=== PATIENT | female | born 1980 | race Caucasian/White ===

== ENCOUNTER 2020-09-24 18:32 | Emergency (ER) | payer BC ==
[2020-09-24 18:45] VITALS: BP 144/96; PULSE 110; TEMP 98.1; BMI 46.7
== END 2020-09-24 19:53 | disposition home or self-care (01) ==
LOC: JER 18:32
DX: H92.02 Otalgia, left ear (principal); J02.9 Acute pharyngitis, unspecified
CPT/HCPCS: 99283-25

== ENCOUNTER 2021-11-26 12:12 | Emergency (ER) | payer BC ==
[2021-11-26 12:24] VITALS: TEMP 98.3; BMI 47.1
[2021-11-26] MEDS ORDERED: SODIUM CHLORIDE 1,000 ML IV SCH (12:30)
[2021-11-26] MEDS ORDERED: SODIUM CHLORIDE 0.9% 500 ML INFUS.BAG IV ONE (12:52)
[2021-11-26] MEDS ORDERED: METOCLOPRAMIDE HCL INJECTION 10 MG/2 ML VIAL IVPB ONE (12:52)
[2021-11-26 13:15] LABS: BASO % 0.7 % (0-2.0); EOS % 0.8 % (0-4.5); HEMATOCRIT 43.4 % (32.4-45.2); HEMOGLOBIN 14.8 GM/dL (10.7-15.3); LYMPH % 27.4 % (8-40); MCH 30.1 pg (25.7-33.7); MEAN CELL VOLUME 88.5 fl (80-96); MEAN PLT VOLUME 7.6 fl (7.5-11.1); MONO % 7.2 % (3.8-10.2); NEUT % 63.9 % (42.8-82.8); PLATELET COUNT 302 10^3/uL (134-434); RDW 12.7 % (11.6-15.6); WHITE BLOOD COUNT 6.6 K/mm3 (4.0-10.0)
[2021-11-26] MEDS ORDERED: METOCLOPRAMIDE HCL INJECTION 10 MG/2 ML VIAL ONE (13:18)
[2021-11-26 13:19] LABS: INR 0.86 (0.83-1.09); PROTHROMBIN TIME (PATIENT) 9.9 SEC (9.7-13.0)
[2021-11-26 13:22] LABS: ACTIVATED PTT 31.1 SECONDS (25.2-36.5)
[2021-11-26 13:35] LABS: ALBUMIN 3.6 g/dl (3.4-5.0); BLOOD UREA NITROGEN 15.8 mg/dL (7-18)
[2021-11-26 13:38] LABS: CREATININE 0.9 mg/dL (0.55-1.3)
[2021-11-26 13:39] LABS: BILIRUBIN,TOTAL 0.4 mg/dL (0.2-1)
[2021-11-26 13:46] VITALS: BP 121/70; PULSE 87
[2021-11-26 14:58] LABS: EPI CELLS 9 /uL (0-25.1); HYALINE CASTS 1 /uL (0-3.1); PH,URINE 5.5 (5.0-8.0); URINE APPEARANCE CLOUDY; URINE BACTERIA 845 /uL (0-1359); URINE BILIRUBIN NEGATIVE (NEGATIVE); URINE COLOR YELLOW; URINE GLUCOSE (UA) 1+ (NEGATIVE); URINE KETONE NEGATIVE (NEGATIVE); URINE LEUK ESTERASE 1+ (NEGATIVE); URINE NITRITE NEGATIVE (NEGATIVE); URINE PROTEIN 1+ (NEGATIVE); URINE RBC 4 /uL (0-23.9); URINE UROBILINOGEN 0.2 mg/dL (0.2-1.0); URINE WBC 151 /uL (0-25.8)
== END 2021-11-26 15:33 | disposition home or self-care (01) ==
LOC: JER 12:12
PROC: 3E033GC Introduction of Other Therapeutic Substance into Peripheral Vein, Percutaneous Approach (ICD-10-PCS; principal; 2021-11-26)
DX: R51.9 Headache, unspecified (principal)
CPT/HCPCS: 36415; 70450-TC; 80053; 80061; 81003; 83036; 85025; 85610; 85730; 86850; 86900; 86901; 93005; 93010; 99285-25

== ENCOUNTER 2021-12-18 15:13 | Emergency (ER) | payer BC ==
[2021-12-18 15:41] VITALS: BP 146/90; PULSE 100; TEMP 98; BMI 48.2
[2021-12-18] MEDS ORDERED: SODIUM CHLORIDE 0.9% 500 ML INFUS.BAG IV ONE (16:44)
[2021-12-18 17:12] LABS: BASO % 0.8 % (0-2.0); EOS % 1.4 % (0-4.5); HEMATOCRIT 40.5 % (32.4-45.2); HEMOGLOBIN 13.9 GM/dL (10.7-15.3); LYMPH % 28.5 % (8-40); MCH 30.4 pg (25.7-33.7); MCHC 34.2 g/dl (32.0-36.0); MEAN CELL VOLUME 89.1 fl (80-96); MONO % 7.6 % (3.8-10.2); NEUT % 61.7 % (42.8-82.8); PLATELET COUNT 238 10^3/uL (134-434); RBC 4.55 M/mm3 (3.60-5.2); RDW 12.6 % (11.6-15.6); WHITE BLOOD COUNT 6.5 K/mm3 (4.0-10.0)
[2021-12-18 17:32] LABS: CALCIUM 8.4 mg/dL (8.5-10.1)
[2021-12-18 17:33] LABS: ALBUMIN 3.1 g/dl (3.4-5.0); BLOOD UREA NITROGEN 13.5 mg/dL (7-18)
[2021-12-18 17:37] LABS: BILIRUBIN,TOTAL 0.3 mg/dL (0.2-1); TOT PROT 7.3 g/dl (6.4-8.2)
== END 2021-12-18 18:53 | disposition home or self-care (01) ==
LOC: JER 15:13
DX: R20.2 Paresthesia of skin (principal)
CPT/HCPCS: 36415; 80053; 85025; 93005; 93010; 99284-25

== ENCOUNTER 2022-09-14 10:15 | Inpatient (IN) | payer BC ==
[2022-09-14 10:20] VITALS: BMI 44.6
[2022-09-14] MEDS ORDERED: VANCOMYCIN 1 GM in D5W (PRE-DOCKED) 1,000 MG/250 ML IVPB ONE (10:49)
[2022-09-14] MEDS ORDERED: VANCOMYCIN/WATER FOR INJ (PEG) 1,000 MG/200 ML BAG IVPB ONE ×2 (11:47→21:56)
[2022-09-14 12:14] LABS: CALCIUM 9.1 mg/dL (8.5-10.1)
[2022-09-14 12:15] LABS: ALBUMIN 3.3 g/dl (3.4-5.0); BLOOD UREA NITROGEN 13.6 mg/dL (7-18)
[2022-09-14 12:18] LABS: CREATININE 0.9 mg/dL (0.55-1.3)
[2022-09-14 12:19] LABS: BILIRUBIN,TOTAL 0.4 mg/dL (0.2-1); TOT PROT 7.8 g/dl (6.4-8.2)
[2022-09-14 12:28] LABS: BASO % 0.9 % (0-2.0); EOS % 0.9 % (0-4.5); HEMATOCRIT 41.9 % (32.4-45.2); LYMPH % 26.6 % (8-40); MCH 29.8 pg (25.7-33.7); MCHC 33.4 g/dl (32.0-36.0); MEAN CELL VOLUME 89.3 fl (80-96); MEAN PLT VOLUME 7.6 fl (7.5-11.1); MONO % 5.4 % (3.8-10.2); NEUT % 66.2 % (42.8-82.8); PLATELET COUNT 352 10^3/uL (134-434); RDW 12.5 % (11.6-15.6); WHITE BLOOD COUNT 7.7 K/mm3 (4.0-10.0)
[2022-09-14] MEDS ORDERED: LACTATED RINGERS SOLUTION 1,000 ML IV SCH (13:00)
[2022-09-14] MEDS ORDERED: VANCOMYCIN 1 GM/200 ML PREMIX BAG (RESTRICTED TO ID ONLY) IVPB SCH (22:00)
[2022-09-14] MEDS: INSULIN SLIDING SCALE (NOVOLOG) 1 VIAL SQ SCH (22:09)
[2022-09-14] MEDS: ACETAMINOPHEN 325 MG TABLET (FP) PO PRN (23:10)
[2022-09-15] MEDS: INSULIN SLIDING SCALE (NOVOLOG) 1 VIAL SQ SCH ×4 (06:04→22:23)
[2022-09-15] MEDS: ENOXAPARIN NA (PORCINE) 40 MG/0.4 ML DISP.SYRIN SQ SCH (09:50)
[2022-09-15 11:36] LABS: BASO % 0.8 % (0-2.0); HEMATOCRIT 40.2 % (32.4-45.2); HEMOGLOBIN 13.5 GM/dL (10.7-15.3); INR 1.03 (0.83-1.09); LYMPH % 31.1 % (8-40); MCH 30.1 pg (25.7-33.7); MCHC 33.5 g/dl (32.0-36.0); MEAN CELL VOLUME 89.8 fl (80-96); MONO % 6.6 % (3.8-10.2); NEUT % 60.5 % (42.8-82.8); PLATELET COUNT 325 10^3/uL (134-434); PROTHROMBIN TIME (PATIENT) 11.9 SEC (9.7-13.0); RBC 4.48 M/mm3 (3.60-5.2); RDW 12.5 % (11.6-15.6); WHITE BLOOD COUNT 5.9 K/mm3 (4.0-10.0)
[2022-09-15 11:39] LABS: ACTIVATED PTT 31.5 SECONDS (25.2-36.5)
[2022-09-15 12:17] LABS: BLOOD UREA NITROGEN 9.3 mg/dL (7-18); MAGNESIUM 1.8 mg/dL (1.8-2.4)
[2022-09-15 12:20] LABS: CALCIUM 8.6 mg/dL (8.5-10.1); CHOLESTEROL 187 mg/dL (50-200); CREATININE 0.8 mg/dL (0.55-1.3); PHOSPHOROUS 3.2 mg/dL (2.5-4.9); TRIGLYCERIDES 181 mg/dL (0-150)
[2022-09-15 12:21] LABS: LDL CHOLESTEROL (ONLY SJRH) 122 mg/dL (5-100)
[2022-09-15 12:22] LABS: BILIRUBIN,TOTAL 0.5 mg/dL (0.2-1); TOT PROT 6.8 g/dl (6.4-8.2)
[2022-09-15 12:23] LABS: HDL CHOLESTEROL 43 mg/dL (40-60)
[2022-09-15] MEDS ORDERED: INSULIN SLIDING SCALE (NOVOLOG) 1 VIAL SQ SCH (13:21)
[2022-09-15 14:08] VITALS: RESP 18
[2022-09-15] MEDS: CEFTRIAXONE 1 GM in DEXTROSE 5%-WATER - 50 ML IVPB SCH (17:45)
[2022-09-16] MEDS: INSULIN SLIDING SCALE (NOVOLOG) 1 VIAL SQ SCH ×4 (07:07→22:21)
[2022-09-16] MEDS: VANCOMYCIN 1 GM in D5W (PRE-DOCKED) 1,000 MG/250 ML IVPB SCH (09:40)
[2022-09-16 10:10] LABS: BASO % 0.8 % (0-2.0); EOS % 1.1 % (0-4.5); HEMATOCRIT 41.3 % (32.4-45.2); HEMOGLOBIN 13.6 GM/dL (10.7-15.3); MCH 29.7 pg (25.7-33.7); MEAN PLT VOLUME 7.8 fl (7.5-11.1); MONO % 5.6 % (3.8-10.2); NEUT % 63.5 % (42.8-82.8); PLATELET COUNT 349 10^3/uL (134-434); RBC 4.59 M/mm3 (3.60-5.2); RDW 12.1 % (11.6-15.6)
[2022-09-16 10:56] LABS: BLOOD UREA NITROGEN 8.7 mg/dL (7-18); CALCIUM 8.9 mg/dL (8.5-10.1)
[2022-09-16 10:57] LABS: ALBUMIN 3.2 g/dl (3.4-5.0); MAGNESIUM 1.8 mg/dL (1.8-2.4)
[2022-09-16 10:59] LABS: CREATININE 0.9 mg/dL (0.55-1.3); PHOSPHOROUS 2.4 mg/dL (2.5-4.9)
[2022-09-16 11:01] LABS: BILIRUBIN,TOTAL 0.6 mg/dL (0.2-1); TOT PROT 7.4 g/dl (6.4-8.2)
[2022-09-16] MEDS: ENOXAPARIN NA (PORCINE) 40 MG/0.4 ML DISP.SYRIN SQ SCH (11:19)
[2022-09-16] MEDS: INSULIN (NOVOLOG) ASPART 100 UNITS/ML 10ML VIAL SQ SCH ×2 (11:20→17:37)
[2022-09-16] MEDS: INSULIN (LEVEMIR) 100 UNITS/ML UNITS SQ SCH ×2 (11:21→22:21)
[2022-09-16] MEDS: CEFTRIAXONE 1 GM in DEXTROSE 5%-WATER - 50 ML IVPB SCH (11:21)
[2022-09-16] MEDS ORDERED: NAPH,MB-DB/K PH,MBDB POWDER PACKET PO ONE (14:06)
[2022-09-17] MEDS: INSULIN (LEVEMIR) 100 UNITS/ML UNITS SQ SCH (06:28)
[2022-09-17] MEDS: INSULIN SLIDING SCALE (NOVOLOG) 1 VIAL SQ SCH ×2 (06:28→12:28)
[2022-09-17] MEDS: INSULIN (NOVOLOG) ASPART 100 UNITS/ML 10ML VIAL SQ SCH ×2 (06:28→12:26)
[2022-09-17] MEDS ORDERED: INSULIN (LEVEMIR) 100 UNITS/ML UNITS SQ ONE (09:21)
[2022-09-17] MEDS ORDERED: INSULIN (LEVEMIR) 100 UNITS/ML UNITS SQ SCH (09:22)
[2022-09-17] MEDS: CEFTRIAXONE 1 GM in DEXTROSE 5%-WATER - 50 ML IVPB SCH (09:33)
[2022-09-17] MEDS: ENOXAPARIN NA (PORCINE) 40 MG/0.4 ML DISP.SYRIN SQ SCH (09:33)
[2022-09-17 10:35] LABS: BASO % 0.7 % (0-2.0); HEMATOCRIT 42.1 % (32.4-45.2); HEMOGLOBIN 14.1 GM/dL (10.7-15.3); LYMPH % 23.8 % (8-40); MCH 29.9 pg (25.7-33.7); MCHC 33.4 g/dl (32.0-36.0); MEAN CELL VOLUME 89.6 fl (80-96); MEAN PLT VOLUME 7.6 fl (7.5-11.1); MONO % 6.3 % (3.8-10.2); NEUT % 68.2 % (42.8-82.8); PLATELET COUNT 366 10^3/uL (134-434); RDW 12.7 % (11.6-15.6); WHITE BLOOD COUNT 7.4 K/mm3 (4.0-10.0)
[2022-09-17] MEDS: ACETAMINOPHEN 325 MG TABLET (FP) PO PRN (11:38)
[2022-09-17 12:18] LABS: BLOOD UREA NITROGEN 11.6 mg/dL (7-18); CALCIUM 8.8 mg/dL (8.5-10.1)
[2022-09-17 12:19] LABS: ALBUMIN 3.3 g/dl (3.4-5.0); MAGNESIUM 1.8 mg/dL (1.8-2.4)
[2022-09-17 12:21] LABS: PHOSPHOROUS 2.8 mg/dL (2.5-4.9)
[2022-09-17 12:22] LABS: CREATININE 0.9 mg/dL (0.55-1.3)
[2022-09-17 12:23] LABS: BILIRUBIN,TOTAL 0.5 mg/dL (0.2-1); TOT PROT 7.8 g/dl (6.4-8.2)
[2022-09-17] MEDS ORDERED: SODIUM CHLORIDE 1 GM TABLET PO SCH ×2 (14:47→22:00)
[2022-09-17 15:40] VITALS: BP 145/90; PULSE 96; TEMP 98
== END 2022-09-17 17:29 | disposition home or self-care (01) | DRG 607 ==
LOC: JER 10:15 → JERBED 12:50 → J5S 22:32
PROVIDERS: ADMIT Internal Medicine; ATTEND Internal Medicine
DX: M79.3 Panniculitis, unspecified (principal); L03.311 Cellulitis of abdominal wall; Z68.42 Body mass index [BMI] 45.0-49.9, adult; L02.211 Cutaneous abscess of abdominal wall; E11.9 Type 2 diabetes mellitus without complications; J45.20 Mild intermittent asthma, uncomplicated; E66.01 Morbid (severe) obesity due to excess calories; G43.909 Migraine, unspecified, not intractable, without status migrainosus; F41.9 Anxiety disorder, unspecified; B95.7 Other staphylococcus as the cause of diseases classified elsewhere
CPT/HCPCS: 36415; 71046-TC-FY; 74176-TC; 80053; 80061; 82962; 83036; 83735; 84100; 84703; 85025; 85610; 85730; 87070; 87205; 93005; 93010; 99285-25; C9803-CS; U0003; U0005

== ENCOUNTER 2022-09-23 07:11 | Day surgery (SDC) | payer BC ==
[2022-09-23 07:19] VITALS: BMI 44.6
[2022-09-23] MEDS ORDERED: ACETAMINOPHEN 500 MG TABLET (FP) PO ONE (08:20)
[2022-09-23 08:52] LABS: BASO % 0.8 % (0-2.0); EOS % 0.9 % (0-4.5); HEMATOCRIT 41.9 % (32.4-45.2); HEMOGLOBIN 14.3 GM/dL (10.7-15.3); MCH 30.2 pg (25.7-33.7); MEAN CELL VOLUME 88.9 fl (80-96); MONO % 7.6 % (3.8-10.2); NEUT % 61.7 % (42.8-82.8); PLATELET COUNT 261 10^3/uL (134-434); RBC 4.72 M/mm3 (3.60-5.2); RDW 12.3 % (11.6-15.6); WHITE BLOOD COUNT 6.1 K/mm3 (4.0-10.0)
[2022-09-23] MEDS ORDERED: VANCOMYCIN/WATER 2 GM/400 ML PREMIX BAG IVPB ONE (09:17)
[2022-09-23] MEDS ORDERED: ACETAMINOPHEN 1000 MG/100 ML BAG IVPB ONE ×3 (09:25→15:17)
[2022-09-23] MEDS ORDERED: ACETAMINOPHEN INJECTION 100 ML IVPB ONE ×2 (09:26→15:52)
[2022-09-23 09:34] LABS: INR 0.91 (0.83-1.09); PROTHROMBIN TIME (PATIENT) 10.5 SEC (9.7-13.0)
[2022-09-23 09:36] LABS: ACTIVATED PTT 30.9 SECONDS (25.2-36.5)
[2022-09-23 10:55] LABS: CALCIUM 8.8 mg/dL (8.5-10.1)
[2022-09-23 10:56] LABS: ALBUMIN 3.5 g/dl (3.4-5.0); BLOOD UREA NITROGEN 10.9 mg/dL (7-18)
[2022-09-23 10:59] LABS: CREATININE 0.8 mg/dL (0.55-1.3)
[2022-09-23 11:00] LABS: BILIRUBIN,TOTAL 0.3 mg/dL (0.2-1); TOT PROT 7.4 g/dl (6.4-8.2)
[2022-09-23] MEDS ORDERED: MIDAZOLAM HCL 2 MG/2 ML SINGLE DOSE VIAL ONE ×2 (12:12→13:20)
[2022-09-23] MEDS ORDERED: PROPOFOL 40 ML ONE (12:12)
[2022-09-23] MEDS ORDERED: LIDOCAINE HCL/PF 2% SDV 5ML VIAL ONE (12:12)
[2022-09-23] MEDS ORDERED: GLYCOPYRROLATE 0.2 MG/1 ML VIAL ONE (12:25)
[2022-09-23] MEDS ORDERED: NEOSTIGMINE METHYLSULFATE 0.5 MG/ML - 10 ML MDV ONE (12:25)
[2022-09-23] MEDS ORDERED: DEXTROSE 50%-WATER 25 GM/50 ML DISP.SYRIN ONE (13:38)
[2022-09-23] MEDS ORDERED: LIDOCAINE HCL 1%, 10 MG/ML (50 mL VIAL) INF ONE (13:58)
[2022-09-23] MEDS ORDERED: CEFTRIAXONE 1 GM in DEXTROSE 5%-WATER - 50 ML IVPB SCH (14:00)
[2022-09-23] MEDS ORDERED: PROMETHAZINE HCL 25 MG/1 ML VIAL IVPUSH PRN ×2 (14:12→15:17)
[2022-09-23] MEDS ORDERED: ONDANSETRON 4 MG/2 ML VIAL IVPUSH PRN ×2 (14:12→15:17)
[2022-09-23] MEDS ORDERED: KETOROLAC TROMETHAMINE 30 MG/1 ML VIAL IVPUSH ONE (14:13)
[2022-09-23] MEDS ORDERED: PIPERACILLIN/TAZOB 3.375 GM 3.375 GM in DEXTROSE 5%-WATER - 50 ML IVPB SCH ×2 (14:15→18:00)
[2022-09-23] MEDS ORDERED: LACTATED RINGERS SOLUTION 1,000 ML IV SCH ×2 (14:15→15:17)
[2022-09-23] MEDS ORDERED: ACETAMINOPHEN 1000 MG/100 ML BAG IVPB PRN (14:33)
[2022-09-23] MEDS ORDERED: CEFEPIME 0.5 GM in DEXTROSE 5%-WATER - 100 ML IVPB SCH (14:45)
[2022-09-23] MEDS: ACETAMINOPHEN 1000 MG/100 ML BAG IVPB PRN (15:56)
[2022-09-23] MEDS ORDERED: INSULIN SLIDING SCALE (NOVOLOG) 1 VIAL SQ SCH (16:30)
[2022-09-23] MEDS: INSULIN SLIDING SCALE (NOVOLOG) 1 VIAL SQ SCH ×2 (16:30→22:35)
[2022-09-23] MEDS: MEROPENEM 1 GM in DEXTROSE 5%-WATER 100 ML IVPB SCH (18:14)
[2022-09-23 21:40] VITALS: RESP 20
[2022-09-23] MEDS ORDERED: INSULIN (LEVEMIR) 100 UNITS/ML UNITS SQ SCH (22:00)
[2022-09-23] MEDS: INSULIN (LEVEMIR) 100 UNITS/ML UNITS SQ SCH (22:19)
[2022-09-24] MEDS: MEROPENEM 1 GM in DEXTROSE 5%-WATER 100 ML IVPB SCH ×2 (03:01→09:30)
[2022-09-24] MEDS ORDERED: INSULIN (NOVOLOG) ASPART 100 UNITS/ML 10ML VIAL ONE (05:41)
[2022-09-24] MEDS: INSULIN (LEVEMIR) 100 UNITS/ML UNITS SQ SCH (07:01)
[2022-09-24] MEDS: INSULIN SLIDING SCALE (NOVOLOG) 1 VIAL SQ SCH ×2 (07:01→11:28)
[2022-09-24] MEDS ORDERED: CEFEPIME 0.5 GM in DEXTROSE 5%-WATER - 100 ML IVPB SCH (10:00)
[2022-09-24] MEDS: ACETAMINOPHEN 1000 MG/100 ML BAG IVPB PRN (11:01)
[2022-09-24 12:47] VITALS: TEMP 97.7
[2022-09-24 15:10] VITALS: BP 134/85; PULSE 94
== END 2022-09-24 17:15 | disposition home health service (06) ==
LOC: JER 07:11 → UNDOADMOB 09:30 → JASUSAT 09:30 → SUATTDRO 09:30 → JERBED 09:30 → J8W 20:10 → JASUSAT 09-24 17:15
PROVIDERS: ATTEND Nurse Practitioner Family
PROC: 0W9F0ZX Drainage of Abdominal Wall, Open Approach, Diagnostic (ICD-10-PCS; principal; 2022-09-23 17:00)
DX: L02.211 Cutaneous abscess of abdominal wall (principal); E11.9 Type 2 diabetes mellitus without complications; Z79.4 Long term (current) use of insulin; E66.01 Morbid (severe) obesity due to excess calories
CPT/HCPCS: 0241U-QW; 36415; 74176-TC; 80053; 82962; 83036; 84703; 85025; 85610; 85730; 86850; 86900; 86901; 87070; 87205; 93005; 93010; 94010; 94760; 99285-25

== ENCOUNTER 2023-06-13 20:25 | Emergency (ER) | payer BC ==
[2023-06-13 20:36] VITALS: TEMP 97.5; BMI 41.9
[2023-06-13 21:43] LABS: BASO % 0.9 % (0-2.0); HEMOGLOBIN 14.6 GM/dL (10.7-15.3); LYMPH % 27.4 % (8-40); MCH 30.9 pg (25.7-33.7); MCHC 34.9 g/dl (32.0-36.0); MEAN CELL VOLUME 88.4 fl (80-96); MEAN PLT VOLUME 7.9 fl (7.5-11.1); MONO % 8.4 % (3.8-10.2); NEUT % 62.3 % (42.8-82.8); PLATELET COUNT 278 10^3/uL (134-434); RBC 4.75 M/mm3 (3.60-5.2); RDW 12.9 % (11.6-15.6)
[2023-06-13 21:50] LABS: INR 0.82 (0.83-1.09); PROTHROMBIN TIME (PATIENT) 9.5 SEC (9.7-13.0)
[2023-06-13 22:01] LABS: POTASSIUM 3.8 mmol/L (3.5-5.1)
[2023-06-13 22:02] LABS: CALCIUM 8.7 mg/dL (8.5-10.1)
[2023-06-13 22:03] LABS: ALBUMIN 3.7 g/dl (3.4-5.0); MAGNESIUM 1.8 mg/dL (1.8-2.4)
[2023-06-13 22:06] LABS: CREATININE 1.1 mg/dL (0.55-1.3)
[2023-06-13 22:08] LABS: BILIRUBIN,TOTAL 0.4 mg/dL (0.2-1); TOT PROT 7.9 g/dl (6.4-8.2)
[2023-06-13 23:14] VITALS: BP 148/93; PULSE 100; RESP 20
[2023-06-13] MEDS ORDERED: POTASSIUM CHLORIDE ORAL LIQUID 20 MEQ/15 ML PO ONE (23:29)
[2023-06-13] MEDS ORDERED: POTASSIUM CHLORIDE TABS 20 MEQ TABLET.ER (FP) PO ONE (23:32)
== END 2023-06-13 23:50 | disposition home or self-care (01) ==
LOC: JER 20:25
DX: R07.9 Chest pain, unspecified (principal); R20.2 Paresthesia of skin
CPT/HCPCS: 36415; 70450-TC; 71045-TC-FY; 72125-TC; 80053; 83735; 84484; 85025; 85610; 93005; 93010; 99285-25

== ENCOUNTER 2024-09-02 09:58 | Emergency (ER) | payer BC ==
[2024-09-02 10:05] VITALS: BP 116/75; PULSE 104; RESP 20; TEMP 97.4; BMI 43.4
[2024-09-02 11:03] LABS: BASO % 0.3 % (0-2.0); EOS % 0.8 % (0-4.5); HEMATOCRIT 45.2 % (32.4-45.2); LYMPH % 12.9 % (8-40); MCH 29.8 pg (25.7-33.7); MCHC 33.1 g/dl (32.0-36.0); MEAN PLT VOLUME 7.9 fl (7.5-11.1); MONO % 6.6 % (3.8-10.2); NEUT % 79.4 % (42.8-82.8); PLATELET COUNT 219 10^3/uL (134-434); RBC 5.02 M/mm3 (3.60-5.2); WHITE BLOOD COUNT 6.1 K/mm3 (4.0-10.0)
[2024-09-02 11:09] LABS: INR 1.03 (0.83-1.09); PROTHROMBIN TIME (PATIENT) 11.6 SEC (9.7-13.0)
[2024-09-02 11:22] LABS: POTASSIUM 3.6 mmol/L (3.5-5.1)
[2024-09-02 11:24] LABS: ALBUMIN 3.5 g/dl (3.4-5.0); MAGNESIUM 1.9 mg/dL (1.8-2.4)
[2024-09-02 11:25] LABS: BLOOD UREA NITROGEN 14.6 mg/dL (7-18)
[2024-09-02 11:27] LABS: CREATININE 0.9 mg/dL (0.55-1.3)
[2024-09-02 11:29] LABS: TOT PROT 7.7 g/dl (6.4-8.2)
== END 2024-09-02 11:58 | disposition home or self-care (01) ==
LOC: JER 09:58
DX: R06.02 Shortness of breath (principal); R53.83 Other fatigue; Z20.822 Contact with and (suspected) exposure to COVID-19
CPT/HCPCS: 0241U-QW; 36415; 71046-TC-FY; 80053; 83735; 84439; 84443; 84484; 84703; 85025; 85379; 85610; 93005; 93010; 99285-25